=== PATIENT | male | born 1945 | race Caucasian/White ===

== ENCOUNTER 2023-12-23 13:53 | Emergency (ER) | payer OTHER ==
[~2023-12-23] VITALS: Ht 167.6 cm; Wt 70.3 kg
[2023-12-23] MEDS ORDERED: ACETAMINOPHEN ES 500 MG TABLET ONE (14:28)
[2023-12-23] MEDS ORDERED: IBUPROFEN 600 MG TABLET ONE (14:28)
[2023-12-23] MEDS: ACETAMINOPHEN ES 500 MG TABLET PO ONE (14:30)
[2023-12-23] MEDS: IBUPROFEN 600 MG TABLET PO ONE (14:30)
[2023-12-23] MEDS ORDERED: IBUP-1953 PO (15:49)
[2023-12-23 16:22] VITALS: BP 155/79; TEMP 97.9; O2SAT 98
== END 2023-12-23 16:22 | disposition home or self-care (01) ==
LOC: ER 13:56
DX: S29.9XXA Unspecified injury of thorax, initial encounter (principal); I11.9 Hypertensive heart disease without heart failure; M47.812 Spondylosis without myelopathy or radiculopathy, cervical region; W22.8XXA Striking against or struck by other objects, initial encounter; Y93.89 Activity, other specified; Y92.410 Unspecified street and highway as the place of occurrence of the external cause; Y99.8 Other external cause status
CPT/HCPCS: 70450-TC; 71045-TC; 72125-TC